=== PATIENT | female | born 1980 | race African-American/Black ===

== ENCOUNTER 2020-01-13 15:53 | Emergency (ER) | payer OTHER ==
[~2020-01-13] VITALS: Ht 165.1 cm; Wt 95.3 kg
[2020-01-13 15:59] VITALS: BP 127/63
--- NOTE | 2020-01-13 16:05 | NUR ---
Pt c/o lt leg pain s/p "stretching" calf at work today. DENIES N/V/D; SKIN IS PINK/WARM/DRY; AAOX4 WITH EVEN AND STEADY GAIT; LUNGS CLEAR BL; HR EVEN AND REGULAR; PT DENIES ANY FEVER, CP, SOB, OR COUGH AT THIS TIME; PATIENT STATES PAIN OF 7/10 AT THIS TIME; VSS; PATIENT POSITIONED FOR COMFORT; HOB ELEVATED; BEDRAILS UP X1; BED DOWN. ER MD MADE AWARE OF PT STATUS.
[2020-01-13] MEDS ORDERED: IBUPROFEN 600 MG TAB PO ONE (16:20)
[2020-01-13 16:34] VITALS: BP 118/55
== END 2020-01-13 16:34 | disposition home or self-care (01) ==
LOC: MED 15:53
DX: S86.912A Strain of unspecified muscle(s) and tendon(s) at lower leg level, left leg, initial encounter (principal); X50.0XXA Overexertion from strenuous movement or load, initial encounter; Y93.89 Activity, other specified; Y92.89 Other specified places as the place of occurrence of the external cause; Y99.8 Other external cause status
CPT/HCPCS: 99282

== ENCOUNTER 2021-11-18 11:25 | Emergency (ER) | payer MEDICAID, OTHER ==
[~2021-11-18] VITALS: Ht 167.6 cm; Wt 96.2 kg
[2021-11-18 11:41] VITALS: BP 114/70
--- NOTE | 2021-11-18 14:10 | NUR ---
41YO FEMALE PT C/O PELVIC PAIN WITH NO RADIATION AND VAGINAL DICHARGE. PT REPORTS 7/10 SHARP PELVIC PAIN AND BROWN "SLIMY" MODERATE DISCHARGE WITH NO ODOR X3 DAYS. PT TENDER TO TOUCH , NON DISTENDED AND STATES USING 2-4 PANTY LINERS DAILY. PT DENIES BEING ON MENSTRUAL CYCLE AND STATES THEY NORMALLY LAST 5-7 DAYS WITH HEAVIER FLOW. PT DENIES NEW SEXUAL PARTNERS. DENIES N/V/D OR CHEST PAIN. DENIES TAKING MEDICATION FOR PAIN. PT ALSO NOTES SHE HAS ANEMIA "SYMPTOMS" , OCCASIONAL FATIGUE AND OFTEN STATES COOL EXTREMETIES. PT AAOX4, NOT IN VISIBLE DISTRESS, RESPIRATIONS EVEN AND UNLABORED. NKA NHX
--- NOTE | 2021-11-18 14:21 | NUR ---
Female Software Engineer Sales accompanied female patient for Pelvic Exam.
[2021-11-18] MEDS ORDERED: ACETAMINOPHEN EXTRA STRENGTH 500 MG TAB PO ONE (14:40)
--- NOTE | 2021-11-18 15:06 | NUR ---
LAB AT BEDSIDE
[2021-11-18] MEDS ORDERED: IBUP-1842 PO (15:28)
[2021-11-18] MEDS ORDERED: KETOROLAC 30 MG/ML VIAL IM ONE (15:30)
[2021-11-18 15:43] LABS: BASOPHILS % (AUTO) 0.8 % (0.0-2.0); EOSINOPHILS % (AUTO) 0.8 % (0.0-4.0); LYMPHOCYTES # (AUTO) 1.8 K/uL (2.5-16.5); LYMPHOCYTES % (AUTO) 33.7 % (20.5-51.1); MEAN CORPUSCULAR HEMOGLOBIN 14 pg (27-31); MEAN CORPUSCULAR HGB CONC 26 g/dL (33-37); MEAN CORPUSCULAR VOLUME 54.9 fL (80-94); MONOCYTES # (AUTO) 0.3 K/uL (0.8-1.0); MONOCYTES % (AUTO) 4.8 % (1.7-9.3); NEUTROPHILS # (AUTO) 3.1 K/uL (1.8-7.7); NEUTROPHILS % (AUTO) 59.9 % (42.2-75.2); PLATELET COUNT (AUTO) 109 K/uL (140-450); RED BLOOD CELL COUNT(AUTO) 3.22 MIL/uL (4.20-5.40); RED CELL DISTRIBUTION WIDTH 30.9 % (11.6-13.7); WHITE BLOOD COUNT (AUTO) 5.2 K/uL (4.8-10.8)
[2021-11-18 16:05] LABS: ALBUMIN 3.5 g/dL (3.4-5.0); CARBON DIOXIDE 24.5 mmol/L (21-32); CREATININE 0.7 mg/dL (0.6-1.3); TOTAL BILIRUBIN 0.3 mg/dL (0.0-1.0)
[2021-11-18 16:10] LABS: MEAN CORPUSCULAR HEMOGLOBIN 14 pg (27-31); MEAN CORPUSCULAR HGB CONC 26 g/dL (33-37); MEAN CORPUSCULAR VOLUME 55.1 fL (80-94); PLATELET COUNT (AUTO) 96 K/uL (140-450); RED BLOOD CELL COUNT(AUTO) 3.16 MIL/uL (4.20-5.40); RED CELL DISTRIBUTION WIDTH 31.1 % (11.6-13.7); WHITE BLOOD COUNT (AUTO) 5.2 K/uL (4.8-10.8)
[2021-11-18 16:27] LABS: BILIRUBIN,URINE NEGATIVE (NEGATIVE); BLOOD, URINE NEGATIVE (NEGATIVE); LEUKOCYTE ESTERASE ,URINE NEGATIVE (NEGATIVE); NITRITE, URINE NEGATIVE (NEGATIVE); UGLUCOSE NEGATIVE (NEGATIVE)
[2021-11-18 16:35] LABS: ANION GAP 11.5 (8-16)
[2021-11-18 16:40] LABS: APPEARANCE,URINE CLEAR (CLEAR); COLOR,URINE YELLOW (YELLOW)
[2021-11-18 16:44] LABS: HEMATOCRIT 17.7 % (36-48); HEMOGLOBIN 4.6 g/dL (12.0-16.0)
[2021-11-18 17:39] LABS: HEMATOCRIT 17.4 % (36-48); HEMOGLOBIN 4.4 g/dL (12.0-16.0)
[2021-11-18 17:41] LABS: PLATELET COUNT,MANUAL 90 K/uL (150-450)
[2021-11-18 17:42] LABS: LYMPHOCYTES % (AUTO) 36.1 % (20.5-51.1); NEUTROPHILS % (AUTO) 56.5 % (42.2-75.2)
[2021-11-18 17:43] LABS: BASOPHILS # (AUTO) 0.1 K/uL (0.00-0.22); EOSINOPHILS % (AUTO) 0.8 % (0.0-4.0); EOSINOPHILS % (MANUAL) 2 % (0-4); LYMPHOCYTES # (AUTO) 1.9 K/uL (2.5-16.5); LYMPHOCYTES % (MANUAL) 28 % (20-46); MONOCYTES # (AUTO) 0.3 K/uL (0.8-1.0); MONOCYTES % (AUTO) 5.6 % (1.7-9.3); MONOCYTES % (MANUAL) 3 % (5-12); NEUTROPHILS # (AUTO) 2.9 K/uL (1.8-7.7)
--- NOTE | 2021-11-18 17:48 | NUR ---
PT SWABBED FOR COVID(XIAO) . WALKED TO LAB
--- NOTE | 2021-11-18 19:30 | NUR ---
REPORT GIVEN TO TYRA DINERO. ALL QUESTIONS ANSWERED. TRANSFER OF CARE AT THIS TIME
--- NOTE | 2021-11-18 19:35 | NUR ---
PATIENT RESTING IN BED. BED IN LOWEST POSITION AND LOCKED. PATIENT DENIES PAIN. ALL NEEDS MET AT THIS TIME.
--- NOTE | 2021-11-18 19:43 | NUR ---
IV ESTABLISHED 20G RIGHT AC
[2021-11-18 20:03] VITALS: BP 102/46
--- NOTE | 2021-11-18 20:03 | NUR ---
REPORT CALLED TO [facility] AND GIVEN TO CELESTE GANNON.
--- NOTE | 2021-11-18 20:03 | NUR ---
Patient to be transferred to [facility]. Is being transferred due to HIGHER LEVEL CARE. Receiving facility has accepting physician and available space. ER physician has signed transfer form. Patient or responsible alliance party has agreed to transfer and signed form. Patient belongings inventoried and will be sent with patient. Copy of nursing notes, lab reports, Physicians Orders and CT to be sent with patient. Report called to CELESTE GANNON at receiving facility. [facility] ambulance service has been called for transfer. ETA is 30 MIN.
--- NOTE | 2021-11-18 20:10 | NUR ---
SPOKE TO FAMILY MEMBER OF PATIENT . UPDATED ON PATIENT STATUS OF TRNASFER.
--- NOTE | 2021-11-18 20:24 | NUR ---
[facility] AT BEDSIDE FOR TRANSPORT
--- NOTE | 2021-11-18 20:24 | NUR ---
[facility] AT BEDSIDE FOR [place]
--- NOTE | 2021-11-18 20:29 | NUR ---
PT TRANSPORTED TO [facility] AT THIS TIME
== END 2021-11-18 20:03 | disposition short-term general hospital (02) ==
LOC: MED 11:25
DX: D25.9 Leiomyoma of uterus, unspecified (principal); Z20.822 Contact with and (suspected) exposure to COVID-19; N83.202 Unspecified ovarian cyst, left side; Z79.1 Long term (current) use of non-steroidal anti-inflammatories (NSAID)
CPT/HCPCS: 36415; 74176; 80053; 81003; 81025; 85025; 86886; 86900; 86901; 86920; 87210; 87426; 87491; 96372; 99291; J1885